=== PATIENT | male | born 1975 | race Caucasian/White ===

== ENCOUNTER 2022-03-30 20:42 | Emergency (ER) | payer OTHER ==
[~2022-03-30] VITALS: Ht 177.8 cm; Wt 131.8 kg
[2022-03-30 20:59] VITALS: TEMP 98.3
[2022-03-30 22:25] VITALS: BP 145/88; PULSE 78
== END 2022-03-30 22:28 | disposition home or self-care (01) ==
LOC: COL.ER 20:42
DX: S93.402A Sprain of unspecified ligament of left ankle, initial encounter (principal); S63.501A Unspecified sprain of right wrist, initial encounter; X50.1XXA Overexertion from prolonged static or awkward postures, initial encounter